=== PATIENT | female | born 1985 | race African-American/Black ===

== ENCOUNTER 2018-01-30 17:06 | Emergency (ER) | payer OTHER ==
[~2018-01-30 17:06] MED LIST: ALBUTEROL0.09 MG/A1 INH; AUGMENTIN 875 M1 TAB PO; AUGMENTIN 875-1 EACH PO; AZITHROMYCIN250 M1 PO; BACTRIM DS 8001 TAB PO; DIFLUCAN150 MG PO; FLEXERIL10 MG PO; IBUPROFEN800 M1 PO; LOTRIMIN CR1 %/45 GM; MOBIC 15MG15 MG PO; MOTRIN800 MG PO; NASONEX0.05 MG/Ac INH; PREDNISONE20 M1 PO; PREDNISONE50 M1 PO; PREDNISONE50 MG PO; PROMETH-CODEIN 65 ML PO; ROBITUSSIN W/CO10 ML PO; TESSALON PERLE100 M1 PO; VENTOLIN HFA18 GM INH; VICODIN5-300 PO; VOLTAREN75 MG PO; ZITHROMAX Z-PA250 M1 PO
--- NOTE | 2018-01-30 18:36 | ED GI/GU/ABDOMINAL COMPLAINT ---
History of Present Illness General Chief Complaint: Abdominal Pain/Flank Pain Stated Complaint: ABD PAIN Source: patient, old records Exam Limitations: no limitations Vital Signs & Intake/Output Vital Signs & Intake/Output Vital Signs Date Time Temp Pulse Resp B/P B/P Pulse O2 O2 Flow FiO2 Mean Ox Delivery Rate 01/30 1910 97.1 66 18 129/88 100 01/30 1723 98.2 78 17 130/89 99 Room Air Allergies Coded Allergies: shellfish derived (Intermediate, TONGUE SWELLING, ITCHING 05/08/17) Reconcile Medications Albuterol Sulfate (Ventolin Hfa) 90 MCG HFA.AER.AD 2 PUF INH Q4-6 PRN PRN COUGH/WHEEZE Amoxicillin/Potassium Clav (Augmentin 875-125 Tablet) 875 MG-125 MG TABLET 1 TAB PO BID SINUSITIS Azithromycin 250 MG TABLET 1 DP PO AD BROPNCHITIS 2 the first day followed by 1 for days 2-5 Benzonatate (Tessalon Perle) 100 MG CAPSULE 1 CAP PO TID PRN COUGH Clotrimazole (Lotrimin Cream 45GM) 1 % CREAM..G. 1 ALEC .ROUTE BID YEAST INFECTION CYCLOBENZAPRINE HCL (Flexeril) 10 MG TAB 1 TAB PO Q8HR PRN MUSCLE SPASMS Diclofenac Sodium (Voltaren) 75 MG ECT 1 TAB PO BID PRN BACK PAIN Fluconazole (Diflucan) 150 MG TABLET 1 TAB PO ONCE YEAST INFECTION TAKE X 1 AND REPEAT IN 1 WEEK HYDROCODONE/ACETAMINOPHEN (Hydrocodon-Acetaminophen 5-325) 1 TAB TAB 1 TAB PO Q6HR PRN PAIN Ibuprofen 800 MG TABLET 1 TAB PO TID PRN PAIN, FEVER Oxycodone HCl/Acetaminophen (Percocet 5-325 MG Tablet) 5 MG-325 MG TABLET 1 TAB PO BID pain Phenazopyridine HCl (Pyridium) 200 MG TABLET 1 TAB PO TID dysuria Prednisone 50 MG TABLET 1 TAB PO DAILY SINUSITIS Prednisone 20 MG TABLET 2 TAB PO DAILY COUGH Promethazine HCl/Codeine (Prometh-Codein 6.25-10 MG/5 Ml) 5 ML SYRUP 5 ML PO Q6H PRN COUGH Sulfamethoxazole/Trimethopri (Bactrim Ds 800 MG-160 MG) 1 TAB TAB 1 TAB PO BID UTI Triage Note: PT TO ED WITH C/O PELVIC PAIN, DYSURIA AND LOWER BACK PAIN FOR THE PAST WEEK. STATES SHE HAS THESE SYMPTOMS OFTEN BEFORE AND AFTER HER MENSES WHICH JUST ENDED ON 01/28. DENIES VAGINAL DISCHARGE. Triage Nurses Notes Reviewed? yes LMP (ages 10-50): now ? n Is pt currently ? No Onset: Abrupt Duration: waxing and waning (`), x months Timing: recent history Quality/Severity: cramping (pressure) Severity Numbers: 7 Location: suprapubic Radiation: no radiation Activities at Onset: menstrual cycle HPI: 32-year-old female history of chronic abdominal pain that she states she gets around her menstrual cycle has been going on for several months. She states she was told the past 6 to BE endometriosis she has not follow-up with her drum sander recently after she was told she would need a hysterectomy. She is complaining of pressure and urinary urgency going on since her menstrual cycle began 2 days ago. She denies any vaginal discharge no rashes to her skin no back pain nausea vomiting fever chills. She denies any other history of surgeries to her abdomen. She states when she's had these symptoms in the past she has been given Percocet with improvement (Bandar Yeboah) Past History Travel History Traveled to [place] past 21 day No Medical History Any Pertinent Medical History? see below for history Neurological: migraine EENT: NONE Cardiovascular: NONE Respiratory: bronchitis Gastrointestinal: NONE Hepatic: NONE Renal: NONE Musculoskeletal: NONE Psychiatric: NONE Endocrine: NONE Blood Disorders: NONE Cancer(s): NONE COMPUTER SCIENCE TEACHER/Reproductive: NONE Surgical History Surgical History: non-contributory Psychosocial History What is your primary language Portuguese Tobacco Use: Current Daily Use Daily Tobacco Use Amount/Type: => 5 Cigarettes daily Family History Hx Contributory? No (Bandar Yeboah) Review of Systems Review of Systems Constitutional: Reports: see HPI. Comments Review of systems: See HPI, All other systems negative. Constitutional, no chills no fever Cardiovascular: No chest pain , no palpitation Skin: no rashes, no change in skin Respiratory: No dyspnea no cough no sputum GI: No nausea no vomiting, no diarrhea, : No dysuria Muscle skeletal: No joint pain, chronic back pain Neurologic: , no headache Heme/endocrine: No bruising Immunology: No lymphadenopathy (Bandar Yeboah) Physical Exam Physical Exam General Appearance: well developed/nourished, no apparent distress, alert Gastrointestinal: normal bowel sounds, soft, non-tender Comments: Well-developed well-nourished person in no acute distress HEENT: Normal EENT exam; PERRL, EOMI, HEAD is atraumatic. moist mucous membranes. Neck: Supple, no lymphadenopathy, normal range of motion Back: Nontender, no CVA tenderness. Full range of motion Cardiovascular: Regular rate and rhythms no murmurs rub Respiratory: No respiratory distress. Patient speaking in full complete sentences. Breath sounds clear to auscultation bilaterally: NO W/R/R Abdomen: Soft, obese, nontender nondistended, no appreciable organomegaly. Normal bowel sounds. No rebound/guarding, No appreciable enlargement of the abdominal aorta, No ascites. Extremity: No edema, full range of motion of extremities, Neuro: Alert oriented x3, motor sensory normal. There were no obvious focal neurologic abnormalities. Skin: No appreciable rash on exposed skin, skin is warm and dry. Psych: Mood and affect is normal, memory and judgment is normal. Core Measures ACS in differential dx? No Sepsis Present: No Sepsis Focused Exam Completed? No (Dannielle BULLARD,Bandar) Progress Differential Diagnosis: appendicitis, biliary colic, colon cancer, cholecystitis , diverticulitis, ectopic , inflamm bowel dis, intrauterine , ovarian cyst, pancreatitis, PUD/GERD, perforated viscous, SBO, threatened AB, UTI/pyelo, endometriosis Plan of Care: Orders Procedure Date/time Status URINE 01/30 172 Complete URINALYSIS 01/30 172 Complete Laboratory Tests 01/30/18 1807: Urine Color YEL, Urine Clarity HAZY H, Urine pH 6.0, Ur Specific [place] >= 1.030, Urine Protein TRACE H, Urine Ketones TRACE H, Urine Nitrite NEG, Urine Bilirubin NEG, Urine Urobilinogen 0.2, Ur Leukocyte Esterase TRACE H, Ur Microscopic SEDIMENT EXAMINED, Urine RBC RARE, Urine WBC RARE, Ur Epithelial Cells FEW, Urine Bacteria RARE H, Urine Mucus FEW, Urine Hemoglobin NEG, Urine Glucose NEG, Urine Test NEGATIVE Darron has had these symptoms going on for several months she states she gets this same exact episodes every month during her menstrual cycle, there is no abdominal pain or tenderness no discharge or bleeding at this time she states she is going to follow-up with her drum sander tomorrow urine culture was sent I discussed with her her results. I discussed with the patient at length all of their results. I had an extensive conversation regarding need for close follow up with their primary care physician this week as well as return precautions. I answered all of their questions, they feel comfortable with the plan and follow-up care. I discussed with the patient the medications that they will receive. I gave them signs and symptoms that could indicate an adverse reaction. I have advised them to limit their activities until they can see how they respond to the medication. Initial ED EKG: none (Bandar Yeboah) Departure Departure Time of Disposition: 1848 Disposition: HOME OR SELF CARE Condition: Stable Clinical Impression Primary Impression: Chronic abdominal pain Referrals: Antoinette Espino MD (PCP/Family) Additional Instructions: Follow-up with her drum sander this week. Pyridium as directed for urinary discomfort. Percocet for breakthrough pain. This is a narcotic and will make you drowsy no driving or drinking alcohol all taking. Departure Forms: Customer Survey General Discharge Information Prescriptions: Current Visit Scripts Oxycodone HCl/Acetaminophen (Percocet 5-325 MG Tablet) 1 TAB PO BID #10 TAB Phenazopyridine HCl (Pyridium) 1 TAB PO TID #9 TAB (Bandar Yeboah) PA/LEAD FIRE PROTECTION ENGINEER Co-Sign Statement Statement: ED Attending supervision documentation- I saw and evaluated the patient. I have also reviewed all the pertinent lab results and diagnostic results. I agree with the findings and the plan of care as documented in the PA's/LEAD FIRE PROTECTION ENGINEER's documentation. x I have reviewed the ED Record and agree with the PA's/LEAD FIRE PROTECTION ENGINEER's documentation. [] Additions or exceptions (if any) to the PAs/LEAD FIRE PROTECTION ENGINEER's note and plan are summarized below: [] (Chetan JACOME,Federico)
[2018-01-30] MEDS ORDERED: PYRIDIUM200 M1 PO (18:54)
[2018-01-30] MEDS ORDERED: PERCOCET 5-3251 EACH PO (18:54)
[2018-01-30 19:10] VITALS: BP 129/88
== END 2018-01-30 19:17 ==
LOC: ERH 17:06
DX: R10.9 Unspecified abdominal pain (principal); G89.29 Other chronic pain
CPT/HCPCS: 81001; 81025